=== PATIENT | female | born 1965 | race Caucasian/White ===

== ENCOUNTER 2018-10-07 14:19 | Emergency (ER) | payer MEDICARE, OTHER ==
--- NOTE | 2018-10-07 14:47 | ED Physician Documentation ---
General Adult - HISTORIAN Historian: patient - HPI Chief Complaint: Head Injury Additional Information: 53yo family who was found to have a laceration to the right posterior occiput area. It is not sure when she sustained it, beleived ot be last night in this AM. . No known LOC noted. It was found when she was taking a shower today. Has been acting normally. No numbness or weakness noted. Mental status seems to be at baseline. Ambulation is at baseline. 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 Last dT was 2012. Onset: other (unknown) Timing: still present - ROS CONST: no problems. denies: fever, chills EYES/ENT: denies: none CVS/RESP: denies: none GI/: denies: abdominal pain, vomiting, nausea NEURO/PSYCH: denies: headache, fainting, dizziness, difficulty walking, difficulty with speech - PAST HX Past History: other (MR, mood disorder, hyponatremia history, GERD, Rett's syndrome, HTN, dysphagia, chronic elevated alk phos, dystonia) Immunizations: tetanus (2012) Allergies/Adverse Reactions: Allergies Allergy/AdvReac Type Severity Reaction Status Date / Time doxycycline Allergy Severe Rash Verified 10/07/18 14:40 ondansetron HCl [From Zofran] Allergy Intermediate Hives Verified 10/07/18 14:40 Home Medications: Ambulatory Orders Medication Instructions Recorded QUEtiapine FUMARATE [Seroquel] 100 mg PO TID 04/12/13 Trazodone HCl [Desyrel] 150 mg PO DAILY 04/12/13 Zolpidem Tartrate [Ambien] 5 mg PO HS 04/12/13 Amitriptyline HCl [Elavil] 100 mg PO HS 10/18/13 Amlodipine Besylate [Norvasc] 5 mg PO DAILY 10/18/13 Atenolol [Tenormin] 25 mg PO DAILY 10/18/13 Folic Acid 1 mg PO DAILY 10/18/13 Ranitidine HCl [Zantac] 150 mg PO HS 10/18/13 Clonazepam 0.5 mg PO TID 06/09/18 Quetiapine Fumarate [Seroquel] 400 mg PO HS 06/09/18 Acetaminophen [Tylenol] 650 mg PO Q4 PRN MDD 4000 06/10/18 Bisacodyl 10 mg PRN 06/10/18 Ferrous Sulfate, Dried [Slow 325 mg PO QDAY 06/10/18 Release Iron] guaiFENesin DM [Robitussin Dm] 5 ml PO PRN 06/10/18 Cephalexin [Keflex] 500 mg PO TID #15 capsule 10/07/18 Cetirizine HCl [Zyrtec] 10 mg PO DAILY 10/07/18 Cholecalciferol (Vitamin D3) 1,000 mg PO DAILY 10/07/18 [Vitamin D3] Polyethylene Glycol 3350 [Miralax] 17 gm PO HS 10/07/18 - SOCIAL HX Smoking History: non-smoker Alcohol Use: none Drug Use: none - FAMILY HX Family History: No - VITAL SIGNS Vital Signs: Vital Signs Temp Pulse Resp BP Pulse Ox 104/72 06/10/18 01:30 - REVIEWED ASSESSMENTS Nursing Assessment Reviewed: Yes Vitals Reviewed: Yes Procedures Wound Location: head (right posterior occiput area) Wound Length: 2.1 mc Wound's Depth, Shape: superficial, linear Wound Explored: clean Betadine Prep?: No (hexadyne) Anesthesia: Other (none) Wound Debrided: none Wound Repaired With: pallavi (2) Number of Sutures: 2 General Adult Physical Exam - PHYSICAL EXAM GENERAL APPEARANCE: no distress EENT: eye inspection normal, ENT inspection normal, pharynx normal, no signs of dehydration, MOHIT. No: oral lesions (patient would not cooperate with examination of oral/pharynx, no dental problems noted) NECK: normal inspection, supple. No: stiff neck RESPIRATORY: no resp distress, chest non-tender, breath sounds normal CVS: reg rate & rhythm, heart sounds normal, equal pulses ABDOMEN: soft, no organomegaly, normal bowel sounds, no abdominal bruit, no distension BACK: normal inspection, no CVA tenderness SKIN: warm/dry, normal color EXTREMITIES: non-tender, normal range of motion (of all major joints) NEURO: CN's nml as tested, motor nml, sensation nml. No: oriented X3, mood/affect nml (at baseline) Discharge Clincal Impression: Occipital scalp laceration Qualifiers: Encounter type: initial encounter Qualified Code(s): S01.01XA - Laceration without foreign body of scalp, initial encounter Referrals: Rosendo Macias [Primary Care Provider] - 2 Days Additional Instructions: Dress head wound with vasoline or triple antibiotic ointment once a day. You may run water over the wound (showering, washing hair) do not soak it in water. Watch for any signs of infection with the wound, redness, purulent drainage, tenderness, etc. Follow head instruction sheet. Have staple removed in about 1 week. Condition: Stable Disposition: 01 HOME, SELF-CARE Decision to Admit: NO Date of Decison to Admit: 10/07/18 Decision Time: 15:08
[2018-10-07] MEDS ORDERED: DIPH,PERTUSS(ACELL),TET VAC/PF 0.5 ML DISP.SYRIN IM ONE (15:06)
[2018-10-07 15:52] VITALS: BP 125/94
== END 2018-10-07 15:31 | disposition home or self-care (01) ==
LOC: ED 14:19
DX: S01.01XA Laceration without foreign body of scalp, initial encounter (principal); X58.XXXA Exposure to other specified factors, initial encounter; Y93.9 Activity, unspecified; Y92.9 Unspecified place or not applicable
CPT/HCPCS: 12001; 90471; 90715; 99282

== ENCOUNTER 2019-04-21 14:32 | Emergency (ER) | payer MEDICARE, OTHER ==
[2019-04-21 14:53] VITALS: BP 110/81
--- NOTE | 2019-04-21 14:56 | ED Physician Documentation ---
Fall - HISTORIAN Historian: other (caregivers) - HPI Stated Complaint: fall Chief Complaint: Fall Additional Information: Patient presents to ED with caregivers after a fall today. Patient lives at the [facility] and goes to daycare where she fell today. Caregivers report she fell last night at home and has a left forehead goose egg. Caregivers are concerned as the last time she had frequent falls she had a urinary tract infection. Caregivers report no other abnormality in patient other than the fall today. 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 All ROS obtained given by caregivers) EYES/ENT: none CVS/RESP: none GI/: denies: vomiting - PAST HX Past History: other (Cerebral palsy) Allergies/Adverse Reactions: Allergies Allergy/AdvReac Type Severity Reaction Status Date / Time doxycycline Allergy Severe Rash Verified 04/21/19 14:50 ondansetron HCl [From Zofran] Allergy Intermediate Hives Verified 04/21/19 14:50 Home Medications: Ambulatory Orders Medication Instructions Recorded QUEtiapine FUMARATE [Seroquel] 100 mg PO TID 04/12/13 Zolpidem Tartrate [Ambien] 5 mg PO HS 04/12/13 Amitriptyline HCl [Elavil] 100 mg PO HS 10/18/13 Amlodipine Besylate [Norvasc] 5 mg PO DAILY 10/18/13 Atenolol [Tenormin] 25 mg PO DAILY 10/18/13 Folic Acid 1 mg PO DAILY 10/18/13 Ranitidine HCl [Zantac] 150 mg PO HS 10/18/13 Clonazepam 0.5 mg PO TID 06/09/18 Quetiapine Fumarate [Seroquel] 400 mg PO HS 06/09/18 Acetaminophen [Tylenol] 650 mg PO Q4 PRN MDD 4000 06/10/18 Bisacodyl 10 mg PRN 06/10/18 Ferrous Sulfate, Dried [Slow 325 mg PO QDAY 06/10/18 Release Iron] guaiFENesin DM [Robitussin Dm] 5 ml PO PRN 06/10/18 Cephalexin [Keflex] 500 mg PO TID #15 capsule 10/07/18 Cetirizine HCl [Zyrtec] 10 mg PO DAILY 10/07/18 Cholecalciferol (Vitamin D3) 1,000 mg PO DAILY 10/07/18 [Vitamin D3] Polyethylene Glycol 3350 [Miralax] 17 gm PO HS 10/07/18 Amoxicillin/Potassium Clav 1 each PO BID 10 Days #20 tablet 04/21/19 [Augmentin 500-125 mg Tablet] - SOCIAL HX Smoking History: non-smoker Alcohol Use: none Drug Use: none - FAMILY HX Family History: none - VITAL SIGNS Vital Signs: Vital Signs Temp Pulse Resp BP Pulse Ox 98.3 F 82 19 110/81 98 04/21/19 14:43 04/21/19 14:43 04/21/19 14:43 04/21/19 14:43 04/21/19 14:43 - REVIEWED ASSESSMENTS Nursing Assessment Reviewed: Yes Vitals Reviewed: Yes ED Results Lab/Radiology - Lab Results Lab Results: UA - negative for infection. - Radiology Radiology Impressions: Report Submission Date: Apr 21, 2019 3:28:09 PM CDT Patient Study Name: BHANU KHAN Date: Apr 21, 2019 3:00:20 PM CDT Modality Type: DX Gender: F Description: CHEST 1VIEW : 63 Institution: [facility] Physician: GRACY MARTIN Exam: AP chest. History: Status post fall. The examination is compared to a study dated June 09, 2018. Perihilar and bibasilar infiltrates have developed. No pleural effusions are seen. Heart and mediastinal contours are normal with atherosclerotic plaques seen in the aorta. Impression: Perihilar and bibasilar infiltrates. Electronically signed on Apr 21, 2019 3:28:09 PM CDT by: Won Diana - Orders Orders: ED Orders Category Date Time Status UA [URINALYSIS] Routine Lab 04/21/19 Ordered Fall Physical Exam - Physical Exam General Appearance: no acute distress, alert Head: non-tender, trauma (left forehead 2 cm hematoma) Neck: non-tender, painless ROM Eye: MOHIT, EOMI ENT: nml external inspection, no dental injury Resp/CVS: chest non-tender, no resp. distress, other (coarse breath sounds bilaterally) Abdomen: soft, normal bowel sounds Neuro: motor nml Skin: color nml, no rash Back: normal inspection, no CVA tenderness Extremities: atraumatic, pelvis stable, hips non-tender Joint: joints nml, nml ROM - Josie Coma Score Eyes Open: Spontaneous Motor: Obeys Commands Discharge Clincal Impression: Bilateral pneumonia Qualifiers: Pneumonia type: due to other aerobic Gram-negative bacteria Lung location: lower lobe of lung Qualified Code(s): J15.6 - Pneumonia due to other Gram- negative bacteria Prescriptions: Amoxicillin/Potassium Clav [Augmentin 500-125 mg Tablet] 1 each PO BID 10 Days #20 tablet Referrals: Rosendo Macias [REFERRING] - 2 Days Additional Instructions: 1. Take antibiotic until gone 2. Tylenol as needed for fever, pain 3. Follow up with PCP within 1 week, repeat chest xray. Patient may benefit from repeat speech evaluation for aspiration. 4. Return to ER for new or worsening symptoms Condition: Stable Disposition: 01 HOME, SELF-CARE Decision to Admit: NO Date of Decison to Admit: 04/21/19 Decision Time: 15:50
[2019-04-21 15:09] LABS: APPEARANCE,URINE CLEAR (CLEAR); COLOR,URINE AMBER (YELLOW); OCCULT BLOOD,URINE NEGATIVE (NEGATIVE); UROBILINOGEN URINE 0.2 Eu (0.2-1.0)
[2019-04-21 15:22] LABS: BASOPHILS % 0.9 % (0.0-1.5); NEUTROPHILS # 4.6 # k/uL (1.4-7.7)
[2019-04-21 15:37] LABS: eGFR (Non-African) > 60
--- NOTE | 2019-04-21 18:05 | Diagnostic Imaging Report ---
GRACY MARTIN [facility] [address] [facility].[address] [address] Report Submission Date: Apr 21, 2019 3:28:09 PM CDT Patient Study Name: BHANU KHAN Date: Apr 21, 2019 3:00:20 PM CDT Modality Type: DX Gender: F Description: CHEST 1VIEW : 63 Institution: [facility] Physician: GRACY MARTIN Exam: AP chest. History: Status post fall. The examination is compared to a study dated June 09, 2018. Perihilar and bibasilar infiltrates have developed. No pleural effusions are seen. Heart and mediastinal contours are normal with atherosclerotic plaques seen in the aorta. Impression: Perihilar and bibasilar infiltrates. Electronically signed on Apr 21, 2019 3:28:09 PM CDT by: Won EDWARDS
== END 2019-04-21 15:59 | disposition home or self-care (01) ==
LOC: ED 14:32
DX: J15.6 Pneumonia due to other Gram-negative bacteria (principal)
CPT/HCPCS: 36415; 71045; 80053; 81002; 85025; 99283; 99284

== ENCOUNTER 2019-05-28 04:35 | Emergency (ER) | payer MEDICARE, OTHER ==
[2019-05-28] MEDS ORDERED: ACETAMINOPHEN ORAL SOLUTION 160 MG/5 ML CUP PO ONE (05:04)
--- NOTE | 2019-05-28 05:11 | ED Physician Documentation ---
Fall - HISTORIAN Historian: other (Caregivers from the [facility]) - HPI Stated Complaint: Fall Chief Complaint: Fall Additional Information: 54 year old female from the [facility] presents to the ER s/p fall- staff are unsure how she fell; patient has Rett syndrome and is nonverbal. She does have swelling to the bridge of nose and abrasion to the forehead. Bleeding to the mouth- staff states that teeth appear normal. Onset: just prior to arrival Where: home Context: tripped, other (unsure how she fell) r: moderate Associated Symptoms:: no loss of consciousness Location of Pain/Injury: face Injury to Right Extremity: none Injury to Left Extremity: none - ROS CONST: no problems NEURO: denies: dizziness MS/SKIN/LYMPH: weakness EYES/ENT: none CVS/RESP: none GI/: denies: nausea, vomiting - PAST HX Past History: other (profound mental retardation, dystonia, mood disorder, GERD, HTN, Insomnia, MRSA, ) Immunizations: UTD Allergies/Adverse Reactions: Allergies Allergy/AdvReac Type Severity Reaction Status Date / Time doxycycline Allergy Severe Rash Verified 05/28/19 04:45 ondansetron HCl [From Zofran] Allergy Intermediate Hives Verified 05/28/19 04:45 Home Medications: Ambulatory Orders Medication Instructions Recorded QUEtiapine FUMARATE [Seroquel] 100 mg PO TID 04/12/13 Zolpidem Tartrate [Ambien] 5 mg PO HS 04/12/13 Amitriptyline HCl [Elavil] 100 mg PO HS 10/18/13 Amlodipine Besylate [Norvasc] 5 mg PO DAILY 10/18/13 Atenolol [Tenormin] 25 mg PO DAILY 10/18/13 Folic Acid 1 mg PO DAILY 10/18/13 Ranitidine HCl [Zantac] 150 mg PO HS 10/18/13 Clonazepam 0.5 mg PO TID 06/09/18 Quetiapine Fumarate [Seroquel] 400 mg PO HS 06/09/18 Acetaminophen [Tylenol] 650 mg PO Q4 PRN MDD 4000 06/10/18 Bisacodyl 10 mg PRN 06/10/18 Ferrous Sulfate, Dried [Slow 325 mg PO QDAY 06/10/18 Release Iron] guaiFENesin DM [Robitussin Dm] 5 ml PO PRN 06/10/18 Cetirizine HCl [Zyrtec] 10 mg PO DAILY 10/07/18 Cholecalciferol (Vitamin D3) 1,000 mg PO DAILY 10/07/18 [Vitamin D3] Polyethylene Glycol 3350 [Miralax] 17 gm PO HS 10/07/18 Amoxicillin/Potassium Clav 1 each PO BID #12 tablet 05/28/19 [Augmentin 875-125 Tablet] Hydroxyzine HCl [Atarax] 12.5 mg PO BID 05/28/19 Sennosides [Senna] 8.6 mg PO BID 05/28/19 Trazodone HCl [Desyrel] 200 mg PO HS 05/28/19 - SOCIAL HX Smoking History: non-smoker Alcohol Use: none Drug Use: none - FAMILY HX Family History: none - VITAL SIGNS Vital Signs: Vital Signs Temp Pulse Resp BP Pulse Ox 104 H 16 175/114 94 05/28/19 04:36 05/28/19 04:36 05/28/19 04:36 05/28/19 04:36 - REVIEWED ASSESSMENTS Nursing Assessment Reviewed: Yes Vitals Reviewed: Yes ED Results Lab/Radiology - Radiology Radiology Impressions: CT facial bones History: Fall trauma injury Technique: Images through the facial bones were obtained without contrast Findings: Examination is limited by patient motion. Minimally displaced nasal bone fracture may be present. Tiny fragments of metal are noted in the left mandibular ramus and lateral wall left maxillary sinus. The mandible, zygomatic arches and pterygoid plates are normal. Paranasal sinuses are well developed into a rated. Orbits are normal. Impression: Possible non-displaced nasal bone fracture. Tiny retained metallic fragments in the left mandible and lateral wall left maxillary sinus. Electronically signed on May 28, 2019 6:05:46 AM ENVIRONMENTAL SCIENTIST by: Davi Foy - Orders Orders: ED Orders Category Date Time Status CT MAXILLOFACIAL W/O DYE Stat Exams 05/28/19 Ordered Acetaminophen [Tylenol Children's Liquid] Med 05/28/19 05:04 Once 160 mg PO NOW ONE Fall Physical Exam - Physical Exam General Appearance: no acute distress, alert Head: no swelling Neck: non-tender Eye: lids & conjunct. nml ENT: no dental injury (per staff; teeth are the same), no oral injury, airway nml Neuro: mood/affect nml, other (nonverbal- staff state that she is at baseline) Skin: color nml, other (abrasion to the right side of forehead) Joint: joints nml, nml ROM, Nml gait/weight bearing - Dustin Coma Score Eyes Open: Spontaneous (nonverbal) Discharge Clincal Impression: Closed nondisplaced fracture of nasal bone, UTI (urinary tract infection) Referrals: Tony Horne MD [Primary Care Provider] - 2 Days Additional Instructions: "Possible non-displaced nasal bone fracture" May give Tylenol for discomfort Will send script for Augmentin for possible UTI Follow up with PCP next week for re-evaluation Condition: Good Disposition: 01 HOME, SELF-CARE Decision to Admit: NO Decision Time: 06:16
--- NOTE | 2019-05-28 06:09 | Diagnostic Imaging Report ---
PATIENT MR#: [id number] PATIENT PATIENT NAME: BHANU KHAN DATE OF : 1965 REFERRING PHYSICIAN: Socorro Solorzano EXAM DATE: 05/28/2019 ACCESSION NUMBER: [id number] EXAM DESCRIPTION: CT MAXILLOFACIAL W/O D CT facial bones History: Fall trauma injury Technique: Images through the facial bones were obtained without contrast Findings: Examination is limited by patient motion. Minimally displaced nasal bone fracture may be pr esent. Tiny fragments of metal are noted in the left mandibular ramus and lateral wall left maxillary sinus. The mandible, zygomatic arches and pterygoid plates are normal. Paranasal sinuses are well developed into a rated. Orbits are normal. Impression: Possible non-displaced nasal bone fracture. Tiny retained metallic fragments in the left mandible and lateral wall left maxillary sinus. Read by: Dr. Davi Foy Transcribed by: Transcribed Date: Electronically signed by: Dr. Davi Foy Date signed: 05/28/2019 6:09:02 AM
[2019-05-28] MEDS ORDERED: AMOXICILLIN/POT 875/125 1 EACH PO ONE (06:17)
== END 2019-05-28 06:29 | disposition home or self-care (01) ==
LOC: ED 04:35
DX: S02.2XXA Fracture of nasal bones, initial encounter for closed fracture (principal); N39.0 Urinary tract infection, site not specified; W01.0XXA Fall on same level from slipping, tripping and stumbling without subsequent striking against object, initial encounter; Y92.009 Unspecified place in unspecified non-institutional (private) residence as the place of occurrence of the external cause
CPT/HCPCS: 70486; 99282; 99283